=== PATIENT | female | born 1990 | race Caucasian/White ===

== ENCOUNTER 2016-03-26 19:22 | Emergency (ER) | payer OTHER ==
[~2016-03-26] VITALS: Ht 162.6 cm; Wt 78.8 kg
[2016-03-26 19:53] LABS: MCH 32.1 PG (29.0-34.0); MCHC 36.4 G/DL (30.0-36.0); MCV 88.2 FL (83-99); MEAN PLAT.VOLUME 9.1 uM^3 (9.5-12.4); PLATELET COUNT 406 K/uL (156-360); RBC DIS.WIDTH-CV 13.4 % (11.8-14.6); RBC DIS.WIDTH-SD 42.9 % (39-53); RED BLOOD COUNT 4.99 M/uL (3.80-5.20); WHITE BLOOD COUNT 13.4 K/uL (4.1-10.2)
[2016-03-26 20:02] LABS: CHLORIDE 106 mEq/L (99-109); POTASSIUM 3.9 mEq/L (3.7-5.4); SODIUM 139 mEq/L (136-147)
[2016-03-26 20:04] LABS: GLUCOSE 94 mg/dL (70-99)
[2016-03-26 20:05] LABS: ANION GAP 13 MEQ/L (2-14)
[2016-03-26 20:07] LABS: SERUM ETHYL ALCOHOL < 10 mg/dL
[2016-03-26 20:08] LABS: GFR ESTIMATE (CALCULATED) > 59 mL/min/; UREA NITROGEN (BUN) 10 mg/dL (9-23)
[2016-03-26 20:09] LABS: AMPHETAMINE NEGATIVE (500 ng/mL); BARBITURATES NEGATIVE (200 ng/mL); BENZODIAZEPINES NEGATIVE (150 ng/mL); COCAINE NEGATIVE (150 ng/mL); INTERNAL CONTROLS VALID? YES; METHADONE NEGATIVE (200 ng/mL); METHAMPHETAMINE NEGATIVE (500 ng/mL); OPIATES (MORPHINE) NEGATIVE (100 ng/mL); OXYCODONE NEGATIVE (100 ng/mL); PHENCYCLIDINE NEGATIVE (25 ng/mL); PROPOXYPHENE NEGATIVE (300 ng/mL); THC CANNABINOIDS NEGATIVE (50 ng/mL); TRICYCLIC ANTIDEPRESSANTS NEGATIVE (300 ng/mL)
[2016-03-26] MEDS ORDERED: LIBRIUM25 MG PO (22:29)
[2016-03-26 22:56] VITALS: BP 123/82
== END 2016-03-26 23:05 | disposition home or self-care (01) ==
LOC: EME 19:22
DX: F33.1 Major depressive disorder, recurrent, moderate (principal); R45.851 Suicidal ideations; F10.20 Alcohol dependence, uncomplicated; F12.20 Cannabis dependence, uncomplicated; F17.200 Nicotine dependence, unspecified, uncomplicated; Z91.5 Personal history of self-harm
CPT/HCPCS: 80048; 85027; 90839; 99281; 99285; G0480